=== PATIENT | female | born 2000 | race Caucasian/White ===

== ENCOUNTER 2020-01-22 08:17 | Emergency (ER) | payer OTHER, SELFPAY ==
[2020-01-22 08:24] VITALS: BP 102/64; PULSE 109; RESP 18; TEMP 37.8; O2SAT 98
--- NOTE | 2020-01-22 08:44 | ED.URI ---
HPI - URI/Sore Throat General Chief Complaint: Upper Respiratory Infection Stated Complaint: fever and cough Time Seen by Provider: 01/22/20 08:44 Source: patient and RN notes reviewed Mode of arrival: ambulatory Limitations: no limitations History of Present Illness HPI Narrative: 19-year-old female presents with concern for fever and cough that started yesterday. She reports ear fullness and general malaise. Denies sore throat, ear pain, nasal congestion, rhinorrhea. MD elicited complaint: cough Related Data Allergies Allergy/AdvReac Type Severity Reaction Status Date / Time No Known Allergies Allergy Unknown Unverified 01/22/20 08:51 Review of Systems Review of Systems: Narrative: CONSTITUTIONAL: Reports malaise,sweats,fever. EYES: Denies visual changes, redness, or discharge. ENT: Denies rhinorrhea, congestion, sinus pain, otalgia and sore throat. CARDIOVASCULAR: Denies chest pain, palpitations, or edema. RESPIRATORY: Reports cough. Denies dyspnea. GASTROINTESTINAL: Denies abdominal pain, nausea, vomiting, diarrhea SKIN: Denies rash or itching. MUSCULOSKELETAL: Reports myalgia. NEUROLOGIC: Reports headache. All systems reviewed & are unremarkable except as noted in HPI and below PMFSH Comments At time of signature, agree with nursing past medical, surgical, social and family history. There is no relevant family history pertinent to the presenting complaint Exam Narrative: Exam Narrative: GENERAL: Well-appearing, well-nourished, and in no acute distress. HEAD: Normocephalic EYES: PERRLA, conjunctivae clear ENT: Nares clear, turbinates erythematous, clear discharge. Mucous membranes moist. TM pearly houser with sharp light reflex bilaterally; no tragal tenderness. Oropharynx not erythematous without lesions. Tonsils not enlarged and without exudate, no drooling, no hoarseness, no trismus. NECK: Supple. No lymphadenopathy CHEST: Clear to auscultation, breath sounds equal. No wheezing, rhonchi, rales, or stridor. No respiratory distress, speaks in full sentences. HEART: Regular rate and rhythm. No murmur heard. Normal peripheral pulses. SKIN: Warm, dry, no rash. NEURO: Alert and oriented x3. PSYCH: Normal mood and affect Course Course Emergency Course: Patient is aware of diagnosis, understands and agrees to treatment plan. Anticipatory guidance given. Patient agrees to follow-up as directed and is aware of reasons to seek care at the emergency department. Portions of this record may have been created with voice recognition software Vital Signs Vital signs: Vital Signs Temperature 100.0 F H 01/22/20 08:24 Pulse Rate 109 H 01/22/20 08:24 Respiratory Rate 18 01/22/20 08:24 Blood Pressure 102/64 01/22/20 08:24 Pulse Oximetry 98 01/22/20 08:24 Temperature 100.0 F H 01/22/20 08:24 Pulse Rate 109 H 01/22/20 08:24 Respiratory Rate 18 01/22/20 08:24 Blood Pressure 102/64 01/22/20 08:24 Pulse Oximetry 98 01/22/20 08:24 Reviewed. MDM - URI/Sore Throat MDM Narrative Medical decision making narrative: Differential diagnosis considered: Strep pharyngitis, allergic rhinitis, upper respiratory tract infection, sinusitis, rhinosinusitis, nasopharyngitis. viral pharyngitis, otitis media, otitis externa, pneumonia, bronchitis, viral cough syndrome, viral syndrome, and influenza. Exam findings show no acute concerns or changes; patient is non-toxic appearing and is in no distress. Patient is appropriate for outpatient treatment and follow-up. Lab Data Attestation: I reviewed the patient's lab results. Critical Care Time Critical Care Time Critical Care Time: No Discharge Plan Discharge Clinical Impression: Influenza A Patient Disposition: Home, Self-Care Condition: Stable Instructions: Influenza (ED) Additional Instructions: -Your symptoms are caused by a virus, and antibiotic does not cure viral illness. -Take strict precautions to prevent the spread of your virus. Be diligent about c
== END 2020-01-22 09:20 | disposition home or self-care (01) ==
PROVIDERS: Emergency Provider Nurse Practitioner
DX: J10.1 Influenza due to other identified influenza virus with other respiratory manifestations (principal)
CPT/HCPCS: 87804; 99213; G0463

== ENCOUNTER 2020-03-10 13:14 | Emergency (ER) | payer OTHER, SELFPAY ==
--- NOTE | ~2020-03-10 | XR_ITS ---
EXAMINATION: XR abdomen/kub 1V DATE: 03/10/2020 14:02 INDICATION: Constipation. TECHNIQUE: A supine view of the abdomen on 2 radiographs was obtained. COMPARISON: Abdomen radiograph 10/06/2007 FINDINGS: There are no dilated loops of bowel. There is a moderate volume of stool in the colon. IMPRESSION: 1. Nonobstructive bowel gas pattern. Reviewed, dictated and finalized at location A.
[2020-03-10 13:23] VITALS: BP 126/72; PULSE 96; RESP 14; TEMP 36.7; O2SAT 99
--- NOTE | 2020-03-10 13:41 | ED.ABDPAIN ---
HPI - Abdominal Pain General Chief Complaint: Abdominal Pain Stated Complaint: Fever/Stomach Pain Time Seen by Provider: 03/10/20 13:42 Source: patient History of Present Illness HPI narrative: patient presents with abdominal discomfort and feeling bloated. nauseated at times. fever this am but non at present. no diarrhea. patient states discomfort is worse after eating. patient reports a history of constipation. Denies any abdominal problems and no abdominal surgeries. unsure of last period. patient reports hard formed stool this am.. no cough , no runny nose, no chest pain and no shortness of breath. no urniary symptoms and no concern for STD. No known exposure to covid 19. MD elicited complaint: abdominal pain Related Data Allergies Allergy/AdvReac Type Severity Reaction Status Date / Time No Known Allergies Allergy Unknown Verified 03/10/20 13:42 Review of Systems Review of Systems: Narrative: CONSTITUTIONAL: Denies fever, chills, or sweats. EYES: Denies visual changes, redness, or discharge. ENT: Denies rhinorrhea, congestion, sore throat, or otalgia. CARDIOVASCULAR: Denies chest pain, palpitations, or edema. RESPIRATORY: Denies cough or dyspnea. GASTROINTESTINAL: Denies vomiting, or diarrhea.nauseated at times history of constipation GENITOURINARY: Denies dysuria or hematuria. SKIN: Denies rash or itching. MUSCULOSKELETAL: Denies back pain, joint pain, or myalgia. NEUROLOGIC: Denies headache, numbness, or weakness. PSYCHIATRIC: Denies anxiety or depression. PMFSH Social History Social History Gender identity (if verbalized by the patient): Female Comments At time of signature, agree with nursing past medical, surgical, social and family history. There is no relevant family history pertinent to the presenting complaint Exam Narrative: Exam Narrative: GENERAL: Well-appearing, well-nourished, and in no acute distress. HEAD: Normocephalic, atraumatic. EYES: PERRLA and EOMI. ENT: Nares clear, no rhinorrhea or epistaxis. Mucous membranes moist. NECK: Supple. CHEST: Clear to auscultation. No respiratory distress. HEART: Regular rate and rhythm. No murmur heard. Normal peripheral pulses. ABDOMEN: Soft, nontender, nondistended, normal active bowel sounds. EXTREMITIES: Normal range of motion. No edema. SKIN: Warm, dry, no rash. NEURO: No focal deficits. Alert and oriented x3. [place]a Coma Scale Eye Opening: Spontaneous 4 Mindy Coma Scale Motor: Obeys Commands 6 Mindy Coma Scale Verbal: Oriented 5 Mindy Coma Scale Total 15 Course Vital Signs Vital signs: Vital Signs Temperature 36.7 C 03/10/20 13:23 Pulse Rate 96 03/10/20 13:23 Respiratory Rate 14 03/10/20 13:23 Blood Pressure 126/72 03/10/20 13:23 Pulse Oximetry 99 03/10/20 13:23 Temperature 36.7 C 03/10/20 13:23 Pulse Rate 96 03/10/20 13:23 Respiratory Rate 14 03/10/20 13:23 Blood Pressure 126/72 03/10/20 13:23 Pulse Oximetry 99 03/10/20 13:23 MDM - Abdominal Pain Differential Diagnosis Differential diagnosis: Likely abdominal pain, acute appendicitis, calculus of kidney, constipation, diverticulitis, endometriosis, gastroenteritis, pancreatitis and small bowel obstruction Lab Data Attestation: I reviewed the patient's lab results. Labs: UCG Bedside Result Negative Reference Range: Negative Urine Glucose Negative Reference Range: Negative Urine Bilirubin Negative Reference Range: Negative Urine Ketone Negative Reference Range: Negative Urine Specific Delta 1.020 Reference Range:1.001-1.035 Urine Blood Negative Reference Range: Negative * * Urine pH 8.5 Reference Range: 5.0-9.0 Urine Protein Negative Reference Range:
--- NOTE | 2020-03-10 14:02 | PC.NURSE ---
NO ORDERED PER DIONE
== END 2020-03-10 14:20 | disposition home or self-care (01) ==
PROVIDERS: Emergency Provider Nurse Practitioner Family
DX: K59.00 Constipation, unspecified (principal); E78.00 Pure hypercholesterolemia, unspecified
CPT/HCPCS: 74018; 81003; 81025; 99213; G0463

== ENCOUNTER 2020-03-25 11:58 | Emergency (ER) | payer OTHER, SELFPAY ==
[2020-03-25 12:05] VITALS: BP 113/65; PULSE 69; RESP 20; TEMP 36.8; O2SAT 99
--- NOTE | 2020-03-25 12:11 | ED.GENADULT ---
HPI - General Adult General Chief complaint: Upper Respiratory Infection Stated complaint: sore throat/fever Time Seen by Provider: 03/25/20 12:14 Source: patient and RN notes reviewed Mode of arrival: ambulatory Limitations: no limitations History of Present Illness HPI narrative: This is a 20 years old female presents to the office for an evaluation of sore throat since this morning. Associated with low grade fever of 100F and ears pain. No treatment prior to arrival. Denies sick contact at home. Related Data Home Medications Medication Instructions Recorded Confirmed No Home Medications 03/25/20 03/25/20 Allergies Allergy/AdvReac Type Severity Reaction Status Date / Time No Known Allergies Allergy Unknown Verified 03/25/20 12:27 Review of Systems Review of Systems: Narrative: CONSTITUTIONAL: Reports fever 100F this morning. ENT: Denies rhinorrhea, congestion. Reports sore throat, otalgia. CARDIOVASCULAR: Denies chest pain RESPIRATORY: Denies dyspnea, cough GASTROINTESTINAL: Denies abdominal pain, nausea, vomiting GENITOURINARY: Denies urinary symptoms SKIN: Denies rash MUSCULOSKELETAL: Denies acute back pain NEUROLOGIC: Denies lightheaded PMFSH Past Medical History Medical History (Updated 03/25/20 @ 12:32 by ANDREZ Aleman) HLD (hyperlipidemia) Social History Social History Gender identity (if verbalized by the patient): Female Comments At time of signature, I agree with nursing past medical, surgical, social and family history. There is no relevant family history pertinent to the presenting complaint. Exam Narrative: Exam Narrative: GENERAL: This is a well-nourished, well-developed patient, in no apparent distress. EYES: Sclera clear/white. Vision is grossly intact. EARS: External ears normal, auditory canals clear and without drainage, TMs normal without perforation. Hearing grossly intact. NOSE: External nose normal with no obvious nasal discharge, nares without redness, no rhinorrhea. THROAT: Mucous membranes moist, posterior pharynx pink with drainage NECK: Neck supple, non-tender without lymphadenopathy, masses or thyromegaly. CARDIOVASCULAR: Regular rate and rhythm without murmurs, gallops, or rubs. RESPIRATORY: Clear to auscultation. Breath sounds equal bilaterally. No wheezes, rales, or rhonchi. GASTROINTESTINAL: Abdomen soft, non-tender, nondistended. Bowel sounds are active. No hepato-splenomegaly, or palpable masses. No guarding. SKIN: warm, intact with no suspicious lesions or rash, good texture and turgor. NEURO: awake, alert, and oriented to person, place and time. There were no obvious focal neurologic abnormalities. Steady gait Tiff Coma Scale Eye Opening: Spontaneous 4 Tiff Coma Scale Motor: Obeys Commands 6 Mindy Coma Scale Verbal: Oriented 5 Course Vital Signs Vital signs: Vital Signs Temperature 98.2 F 03/25/20 12:05 Pulse Rate 69 03/25/20 12:05 Respiratory Rate 20 03/25/20 12:05 Blood Pressure 113/65 03/25/20 12:05 Pulse Oximetry 99 03/25/20 12:05 Temperature 98.2 F 03/25/20 12:05 Pulse Rate 69 03/25/20 12:05 Respiratory Rate 20 03/25/20 12:05 Blood Pressure 113/65 03/25/20 12:05 Pulse Oximetry 99 03/25/20 12:05 Medical Decision Making MDM Narrative Medical decision making narrative: Discharge instructions reviewed with patient, as well as provided in writing per nursing staff. The instructions also include specific and strict return/GO TO THE ER as well as f/u information. All questions have been answered, and the patient deny any further questions with discharge and discharge plan. Differential Diagnosis Differential Diagnosis: pneumonia, Allergic Rhinitis, Upper respiratory cough syndrome, Pharyngitis, Sinusitis, Bronchitis, otitis media, viral URI, Asthma/reactive airway disease, influenza Vital Signs Vital Signs: Vital Signs Temperature 98
== END 2020-03-25 12:35 | disposition home or self-care (01) ==
PROVIDERS: Emergency Provider Nurse Practitioner
DX: J02.9 Acute pharyngitis, unspecified (principal)
CPT/HCPCS: 87081; 87880; 99213; G0463

== ENCOUNTER 2020-06-05 09:07 | Emergency (ER) | payer OTHER, SELFPAY ==
[2020-06-05 09:14] VITALS: BP 111/64; PULSE 80; RESP 16; TEMP 37.2
--- NOTE | 2020-06-05 09:18 | ED.URI ---
HPI - URI/Sore Throat General Chief Complaint: Upper Respiratory Infection Stated Complaint: throat and ears Time Seen by Provider: 06/05/20 09:23 Source: patient and RN notes reviewed History of Present Illness HPI Narrative: Patient is a 20-year-old female who presents the urgent care with complaints of loose stools, sore throat, bilateral ear pressure and sneezing. Patient states that she was constipated a couple days ago and took MiraLAX which caused a loose stools this morning. Patient states that she went into work and they sent her away because of her diarrhea and sore throat . Patient denies of any nausea or abdominal pain at this time. Patient states that she is taken ibuprofen and MiraLAX. No other acute complaints. No acute distress noted. Patient read the plan of care. Related Data Home Medications Medication Instructions Recorded Confirmed No Home Medications 03/25/20 03/25/20 Allergies Allergy/AdvReac Type Severity Reaction Status Date / Time No Known Allergies Allergy Unknown Verified 06/05/20 09:33 Review of Systems Review of Systems: Narrative: CONSTITUTIONAL: Denies fever, chills, or sweats. EYES: Denies visual changes, redness, or discharge. ENT: Reports of sore throat bilateral otalgia, and sneezing CARDIOVASCULAR: Denies chest pain, palpitations, or edema. RESPIRATORY: Denies cough or dyspnea. GASTROINTESTINAL: Reports of loose stools GENITOURINARY: Denies dysuria or hematuria. SKIN: Denies rash or itching. MUSCULOSKELETAL: Denies back pain, joint pain, or myalgia. NEUROLOGIC: Denies headache, numbness, or weakness. All other systems reviewed are negative, except as documented in HPI. PMFSH Past Medical History Medical History (Updated 06/05/20 @ 09:43 by ANDREZ Messina) HLD (hyperlipidemia) Social History Social History Gender identity (if verbalized by the patient): Female Comments At the time of my signature, I reviewed and agree with the nursing past medical, surgical, social, and family history. There is no relevant family history pertinent to the patient complaint. Exam Narrative: Exam Narrative: GENERAL: This is a well-nourished, well-developed patient, in no apparent distress. HEAD: normocephalic, atraumatic. EYES: PERRL. Sclera clear/white. Vision is grossly intact. EARS: External ears normal, auditory canals clear and without drainage, bilateral cerumen noted without impaction, TMs normal without perforation. Hearing grossly intact. NOSE: External nose normal with no obvious nasal discharge, nares without redness, no rhinorrhea. THROAT: Mucous membranes moist, posterior pharynx clear. NECK: Neck supple CARDIOVASCULAR: Regular rate and rhythm without murmurs, gallops, or rubs. RESPIRATORY: Clear to auscultation. Breath sounds equal bilaterally. No wheezes, rales, or rhonchi. GASTROINTESTINAL: Abdomen soft, non-tender, nondistended. Bowel sounds are active. SKIN: warm, intact with no suspicious lesions or rash, good texture and turgor. NEURO: awake, alert, and oriented to person, place and time. There were no obvious focal neurologic abnormalities. EXTREMITIES: No clubbing, cyanosis, or edema. Course Vital Signs Vital signs: Vital Signs Temperature 98.9 F 06/05/20 09:14 Pulse Rate 80 06/05/20 09:14 Respiratory Rate 16 06/05/20 09:14 Blood Pressure 111/64 06/05/20 09:14 Temperature 98.9 F 06/05/20 09:14 Pulse Rate 80 06/05/20 09:14 Respiratory Rate 16 06/05/20 09:14 Blood Pressure 111/64 06/05/20 09:14 Reviewed MDM - URI/Sore Throat MDM Narrative Medical decision making narrative: Reviewed lab results with the patient. She is aware that strep swab was negative. Educated her on culture we will call within 72 hours if culture is positive and antibiotics are necessary. Advised the patient to continue using [id number] medication as needed for her symptoms such as ibupr
== END 2020-06-05 09:45 | disposition home or self-care (01) ==
PROVIDERS: Emergency Provider Nurse Practitioner Family
DX: J02.9 Acute pharyngitis, unspecified (principal); E78.5 Hyperlipidemia, unspecified
CPT/HCPCS: 87081; 87880; 99213; G0463

== ENCOUNTER 2021-11-28 11:34 | Emergency (ER) | payer OTHER, SELFPAY ==
[2021-11-28 11:47] VITALS: BP 124/78; PULSE 115; RESP 16; TEMP 37.6; O2SAT 98
--- NOTE | 2021-11-28 13:14 | ED.URI ---
HPI - URI/Sore Throat General Chief Complaint: Upper Respiratory Infection Stated Complaint: Sore Throat Time Seen by Provider: 11/28/21 13:04 Source: patient and RN notes reviewed Mode of arrival: ambulatory Limitations: no limitations History of Present Illness HPI Narrative: 21-year-old female presents with concern for sore throat, cough, one episode of vomiting today. Reports most symptoms started on Friday. Reports she took a rapid Covid test on the same day of symptom onset which is negative. She denies any [id number] intervention. She denies any known sick contacts. MD elicited complaint: cough and sore throat Related Data Allergies Allergy/AdvReac Type Severity Reaction Status Date / Time No Known Allergies Allergy Unknown Verified 11/28/21 12:26 Review of Systems Review of Systems: CONSTITUTIONAL: Reports malaise. Denies chills, sweats, or fever. EYES: Denies visual changes, redness, or discharge. ENT: Denies rhinorrhea, congestion, sinus pain, otalgia. Reports sore throat. CARDIOVASCULAR: Denies chest pain, palpitations, or edema. RESPIRATORY: Reports cough. Denies dyspnea. GASTROINTESTINAL: Denies abdominal pain, nausea, vomiting, diarrhea SKIN: Denies rash or itching. MUSCULOSKELETAL: Denies myalgia. NEUROLOGIC: Denies headache. All systems reviewed & are unremarkable except as noted in HPI and below PMFSH Past Medical History Medical History (Updated 11/28/21 @ 13:17 by Vee Zaldivar NP) HLD (hyperlipidemia) Social History Social History Gender identity (if verbalized by the patient): Female Comments At time of signature, agree with nursing past medical, surgical, social and family history. There is no relevant family history pertinent to the presenting complaint Exam Narrative: GENERAL: Well-appearing, well-nourished, and in no acute distress. HEAD: Normocephalic EYES: PERRLA, conjunctivae clear ENT: Nares clear, clear discharge. Mucous membranes moist. TM pearly houser with sharp light reflex bilaterally; no tragal tenderness. Oropharynx erythematous without lesions. Tonsils not enlarged and without exudate, no drooling, no hoarseness, no trismus, uvula midline. NECK: Supple. No lymphadenopathy CHEST: Clear to auscultation, breath sounds equal. No wheezing, rhonchi, rales, or stridor. No respiratory distress, speaks in full sentences. HEART: Regular rate and rhythm. No murmur heard. SKIN: Warm, dry, no rash. NEURO: Alert and oriented x3. PSYCH: Normal mood and affect Course Course Emergency Course: Patient is aware of diagnosis, understands and agrees to treatment plan. Anticipatory guidance given. Patient agrees to follow-up as directed and is aware of reasons to seek care at the emergency department. Portions of this record may have been created with voice recognition software Vital Signs Vital signs: Vital Signs Temperature 99.7 F H 11/28/21 11:47 Pulse Rate 115 H 11/28/21 11:47 Respiratory Rate 16 11/28/21 11:47 Blood Pressure 124/78 11/28/21 11:47 Pulse Oximetry 98 11/28/21 11:47 Temperature 99.7 F H 11/28/21 11:47 Pulse Rate 115 H 11/28/21 11:47 Respiratory Rate 16 11/28/21 11:47 Blood Pressure 124/78 11/28/21 11:47 Pulse Oximetry 98 11/28/21 11:47 Reviewed. MDM - URI/Sore Throat MDM Narrative Medical decision making narrative: Differential diagnosis considered: Cruz virus, strep pharyngitis, allergic rhinitis, upper respiratory tract infection, sinusitis, rhinosinusitis, nasopharyngitis. viral pharyngitis, otitis media, otitis externa, pneumonia, bronchitis, viral cough syndrome, viral syndrome, and influenza. Exam findings show no acute concerns or changes; patient is non-toxic appearing and is in no distress. Patient is appropriate for outpatient treatment and follow-up. Lab Data Attestation: I reviewed the patient's lab results. Labs: Strep Screen Presumptive
== END 2021-11-28 13:30 | disposition home or self-care (01) ==
PROVIDERS: Emergency Provider Nurse Practitioner
DX: U07.1 COVID-19 (principal); E78.5 Hyperlipidemia, unspecified
CPT/HCPCS: 87081; 87426; 87880; 99213; C9803; G0463

== ENCOUNTER 2025-11-01 10:10 | Emergency (ER) | payer BC, SELFPAY ==
[2025-11-01 10:19] VITALS: BP 131/79; PULSE 101; RESP 18; TEMP 36.7; O2SAT 99
--- OUTSIDE RECORDS SUMMARY | 2025-11-01 10:57 | XMS_ITS | Data Portability ---
Author Organization [facility] Address [address] [place] [address] Assessment No assessment recorded. Plan of Treatment Reminders Order Date Submit Date Provider Last Modified By Organization Details Last Modified Time Details Appointments None recorded. Lab rapid strep group A, throat 2024 025 In-Office Order, Internal Use Only DO Not Attach Compendium DO Not Attach Compendium, Do Not Delete/merge, [id number] 10:51:29 influenza virus A + B + SARS-CoV-2 (COVID19) Ag panel, rapid IA, upper respiratory specimen 2024 025 In-Office Order, Internal Use Only DO Not Attach Compendium DO Not Attach Compendium, Do Not Delete/merge, [id number] 10:51:28 Referral None recorded. Procedures None recorded. Surgeries None recorded. Imaging None recorded. Medication Orders ondansetron 4 mg disintegrat ing tablet 2024 025 [id number] , [place], [address], 05:02:29 Patient TargetsNo targets recorded. Patient Instructions Encounter Date Encounter Id Patient Instructions Last Modified By Organization Details Last Modified Time 05/11/2025 [id number] nausea and vomiting: care instructions Not available 05/11/2025 11:09:51 A healthy lifestyle: care instructions Not available 05/11/2025 11:10:39 viral infections : care instructions Not available 05/11/2025 11:09:51 Reason for Referral None Reported. Results Created Date Observation Date Name Description Value Unit Range Abnormal Flag Note LastModifiedBy Organization Detail LastModifiedTime 05/11/2005/11/2025 influ eligio virus A + B + SARS- CoV-2 (COVI D19) Ag panel , rapid IA, upper respi rator y speci men Flu A negati ve Not Available In-Office Order Internal Use Only DO Not Attach Compendium DO Not Attach Compendium, Do Not Delete/merge, [id number] 05/11/2025 10:44:39 05/11/20 25 05/11/2025 influ eligio virus A + B + SARS- CoV-2 (COVI D19) Ag panel , rapid IA, upper respi rator y speci men Flu B negati ve Not Available In-Office Order Internal Use Only DO Not Attach Compendium DO Not Attach Compendium, Do Not Delete/merge, [id number] 05/11/2025 10:44:39 05/11/20 25 05/11/2025 influ eligio virus A + B + SARS- CoV-2 (COVI D19) Ag panel , rapid IA, upper respi rator y speci men Rapid SARS CoV 2 Ag, QL IA, respiratory specimen negati ve Not Available In-Office Order Internal Use Only DO Not Attach Compendium DO Not Attach Compendium, Do Not Delete/merge, [id number] 05/11/2025 10:44:39 05/11/2005/11/2025 rapid strep group A, throa t Strep negati ve Not Available In-Office Order Internal Use Only DO Not Attach Compendium DO Not Attach Compendium, Do Not Delete/merge, [id number] 05/11/2025 10:44:15 Result Notes None recorded. Problems No Known Problems Medical Equipment None Reported. Allergies Allergen ID Allergen Name Allergen Category Reaction Reaction Severity Criticality Documentation Date Start Date Code Code System Note Provider Name and Address Organization Details Recorded Time 19140404 peanut allergeni c extract food,medi cation Not available Not available high 05/11/2025 90146 8 [facility] CAMILLE [place] - [facility] 10:42:58 Medications Name Sig Start Date Stop Date Status Note LastModified by Organization Details LastModified Time ondansetron 4 mg disintegrat ing tablet Place 1 tablet twice a day by transling ual route as needed for 5 days. 05/23 completed Not Available Not Available Not Available Vitals Date Recorded Body height Body mass index (BMI) Body weight Oxygen saturation Heart rate Respiratory rate Body temperature Systolic And Diastolic Provider Name and Address Organization Details Last Updated DateTime 157.48 cm 31.5 kg/m2 32848.8 9 g 97 % 81 /min 17 /min 97.9 [degF] 124/76 mm[Hg] Lanette Multani MA [facility] 10:42:23 Social History Question Answer Notes LastModified by Organizat ion Details LastModified Time Tobacco Smoking Status Never Smoker Lanette Multani MA null, [facility] 05/11/2025 10:43:43 What Was The Date Of Your Most Recent Tobacco Screening? 05/11/2025 Information not available 05/11/2025 Sex: Unknown Functional Status Question Answer Note LastModified by Organization D etails LastModified Time Do you or have you ever used any other forms of tobacco or nicotine? No Information not available 05/11/2025 What is your level of alcohol consumption? None Information not available 05/11/2025 Mental Status None recorded. Family History Nothing Reported. Medical History Condition Response Coronary Artery Disease N Other N High Blood Pressure N Atrial Fibrillation N Thyroid Problems N Kidney or Bladder Problems N GI Problems N Depression N COPD N Blood Clots N Have you had a mammogram in the last yea r? N Skin Problems N Eating Disorder N Anemia N Heart Attack (HI) N Anxiety Disorder N Diabetes N Muscle, Joint, or Bone Problems N Arthritis N Seizures/Epilepsy N Have you had a colonoscopy in the last 1 0 years? N Acid Reflux (GERD) N Cancer N Stroke N Asthma N Allergies N Have you had a PSA blood test in the las t year? N ADHD N Substance Abuse N High Cholesterol N Hepatitis N Liver Disease N Schizophrenia N Headaches N Heart Failure N Osteoporosis N Gynecological History Statement/Question Response Date of LMP 04/26/2025 Obstetrics History GPAL:G 0 P 0 0 0 0 Past Encounters Encounter ID Performer Location Encounter Start Date Encounter Closed Date Diagnosis/Indication Diagnosis SNOMED-CT Code Diagnosis ICD10 Code Diagnosis IMO Codes Diagnosis Note [id number] Hong Mcdaniel MD [facility] [place] [address] 05/11/2025 10:31:59 05/30/2025 13:11:30 Viral disease 87416946 B34.9 32971 -Increase fluid intake-Can use tylenol or ibuprofen for fever or pain-ER precaution s discussed. -To alert clinic if any new or wosening symptoms. Viral gastroenteritis 11 2085476 A08.4 93172 -BRAT diet discussed. -To take as directed.- ER precaution s discussed. Obese class I [id number] 15847 E66.811 [id number] Health Concerns Section Related Observation LastModified by Organization Detai ls LastModified Time None Recorded Concern Status LastModified by Organization Details LastModified Time None Recorded Advance Directives Directive None Recorded Payers Insurance Date Sequence Insurance Name Policy Number Policy Byrd Covered Member ID Byrd Member ID Guarantor Name 05/31/2025 1 [employer] [id number] Sudeep Santiago [id number] Cleo Santiago Notes Date Note Type Note Provider Name and Address Organization Details Recorded Time 05/11/2025 text/html Throat PainRepor jannie by PatientHPIFor associated symptoms, patient reportsloss of appetite,fever, andnasal congestionbut reportsno stress,no coughing with sputum,no choking,no throat tickle/itch,no globus sensation,no odynophagia,no dysphagia,no burping,no hoarseness,no neck/shoulder muscle tension,no weight loss,no lump in neck,no dyspnea,no daytime somnolence,no ear pain,no ear infection,no postnasal drip,no oral mucosal lesion, andno hemoptysis. For location, patient reportsbilateral. For quality, patient reportssore. For severity, patient reportsmild. For onset/timing, patient reportsabrupt.ROS as noted in the HPI Pt reports nausea and vomiting that started on Friday. States she has not had any further vomiting since Friday. No abdominal pain. Pt reports sore throat that started last night. Does report a subjective fever. + body aches. No diarrhea. No rash. + sick contacts. with similar symptoms. LMP: 04/26/25. Regular. Denies any chance of . NATALY Cleveland NP Attn: [employer] [place], [address], [facility] - [facility] 05/11/2025 11:10:47 OBGyn Episode No OBEpisode recorded.
[2025-11-01 11:14] LABS: EDCOVIDSCREEN Negative (Negative)
[2025-11-01 11:15] LABS: EDINFLUASCREEN Negative (Negative); EDINFLUBSCREEN Negative (Negative)
--- NOTE | 2025-11-01 11:19 | ED.GENADULT ---
HPI - General Adult General Chief complaint: Upper Respiratory Infection Stated complaint: Cough/Breathing Problem Source: patient Mode of arrival: ambulatory Limitations: no limitations History of Present Illness HPI narrative: Pt presents for evaluation of respiratory symptoms since last night. She reports cough, wheezing and SOB. she denies any fever, chills, sore throat nausea, vomiting, diarrhea. No recent sick contacts to her knowledge. She is not taking any medications to assist with her symptoms. She does not smoke or vape. No underlying history of asthma. Related Data Allergies Allergy/AdvReac Type Severity Reaction Status Date / Time peanut Allergy Unknown Unknown Verified 11/01/25 10:26 gel medications Allergy Unknown Unknown Uncoded 11/01/25 10:26 Review of Systems Review of Systems: CONSTITUTIONAL: Denies fever, chills, or sweats. EYES: Denies visual changes, redness, or discharge. ENT: Denies rhinorrhea, congestion, sore throat, or otalgia. CARDIOVASCULAR: Denies chest pain, palpitations, or edema. RESPIRATORY: Reports cough, SOB and wheezing GASTROINTESTINAL: Denies abdominal pain, nausea, vomiting, or diarrhea. GENITOURINARY: Denies dysuria or hematuria. SKIN: Denies rash or itching. MUSCULOSKELETAL: Denies back pain, joint pain, or myalgia. NEUROLOGIC: Denies headache, numbness, dizziness, or weakness. PSYCHIATRIC: Denies anxiety or depression. PMFSH Past Medical History Medical History HLD (hyperlipidemia) Surgical History Surgical History No pertinent past surgical history Family History Family History Mother Family history non-contributory Social History Social History Smoking status: Never smoker Substance use: never Gender identity (if verbalized by the patient): Female Sexual Orientation (if Verbalized by the Patient): Straight or Heterosexual Spiritual care concerns: No Exam Narrative: GENERAL: Well-appearing, well-nourished, and in no acute distress. HEAD: Normocephalic, atraumatic. EYES: PERRLA and EOMI. ENT: Nares clear, no rhinorrhea or epistaxis. Mucous membranes moist. Oropharynx without tonsillar hypertrophy exudate or other lesions. Bilateral TMs pearly houser nonbulging NECK: Supple. No adenopathy or masses. No carotid bruits or JVD CHEST: Clear to auscultation. No respiratory distress. No wheezes rales or rhonchi HEART: Regular rate and rhythm. No murmur heard. Normal peripheral pulses. ABDOMEN: Soft, nontender, nondistended, normal active bowel sounds. EXTREMITIES: Normal range of motion. No edema. SKIN: Warm, dry, no rash. NEURO: No focal deficits. Alert and oriented x3. PSYCH: Normal mood and affect. Course Course Emergency Course: this is a 25-year-old female who presented for evaluation of respiratory symptoms. Flu and COVID negative. She has no adventitious lung sounds warranting chest x-ray. Exam consistent with viral URI. Will dc with prednisone and albuterol. Follow up with primary provider. Go to the ER for worsening symptoms. Pt in agreement with plan of care. Level of Care: Express Care Visit Vital Signs Vital signs: Vital Signs Temperature 36.7 C 11/01/25 10:19 Pulse Rate 101 H 11/01/25 10:19 Respiratory Rate 18 11/01/25 10:19 Blood Pressure 131/79 11/01/25 10:19 Pulse Oximetry 99 11/01/25 10:19 Oxygen Delivery Room Air 11/01/25 10:19 Temperature 36.7 C 11/01/25 10:19 Pulse Rate 101 H 11/01/25 10:19 Respiratory Rate 18 11/01/25 10:19 Blood Pressure 131/79 11/01/25 10:19 Pulse Oximetry 99 11/01/25 10:19 Oxygen Delivery Room Air 11/01/25 10:19 MDM Differential Diagnosis Differential Diagnosis: flu versus COVID versus pneumonia versus other viral illness vs other Lab Data Labs: Lab Results 11/01/25 Range/Units 11:13 POC Influenza A Ag Negative (Negative) POC Influenza B Ag Negative (Negative) POC SARS CoV-2 Ag Negative (Negative) Discharge Plan Discharge Clinical Impression: Viral URI Patient Disposition: Home Condition: Stable Instructions: Antibiotic Form, Upper Respiratory Infection (DC), Viral Syndrome (ED) Patient Language: Polish Prescriptions: New prednisone 50 mg tablet 50 mg PO DAILY Qty: 5 0RF albuterol sulfate [Ventolin HFA] 90 mcg/actuation HFA aerosol inhaler 2 puff inhalation QID PRN (Reason: shortness of breath or wheezing) Qty: 8.5 0RF Follow-up/Referrals: Allen Munoz MD [Physician, Family Practice] Time of Disposition: 11:18
== END 2025-11-01 11:22 | disposition home or self-care (01) ==
PROVIDERS: Emergency Provider Nurse Practitioner
DX: J06.9 Acute upper respiratory infection, unspecified (principal); Z20.822 Contact with and (suspected) exposure to COVID-19; E78.5 Hyperlipidemia, unspecified
CPT/HCPCS: 87426; 87804; 99213; G0463